=== PATIENT | female | born 1950 | race American Indian/Alaskan Native ===

== ENCOUNTER → 2018-04-07 09:13 | Outpatient (CLI) | payer MEDICARE, OTHER, SELFPAY ==
[2018-04-07 09:44] LABS: Add Manual Diff / Slide Review NO; Basophils Percent Auto 1.4 % (0-2); Eosinophils Percent Auto 1.6 % (2-4); Hematocrit 39.1 % (36-46); Hemoglobin 13.2 g/dL (12.0-16.0); Lymphocytes Percent Auto 37.4 % (25-40); Mean Corpuscular HGB Conc 33.8 % (30-36); Mean Corpuscular Hemoglobin 27.8 PG (26-34); Mean Corpuscular Volume 82.1 fL (80-100); Monocytes Percent Auto 9.2 % (3-14); Neutrophils Absolute Auto 3600 /uL (3000-5900); Neutrophils Percent Auto 50.4 % (50-75); Platelet Count 262 X10^3/uL (150-400); Red Blood Cell Count 4.77 X10^6/uL (4.0-5.2); Red Cell Distribution Width 15.1 % (11.6-14.8); White Blood Cell Count 7.1 X10^3/uL (4.5-11.0)
[2018-04-07 10:05] LABS: Alanine Aminotransferase 68 IU/L (9-52); Albumin 4.6 g/dL (3.5-5.0); Albumin Globulin Ratio 1.4 (1.0-2.8); Alkaline Phosphatase 96 U/L (38-126); Aspartate Aminotransferase 59 IU/L (14-36); Bilirubin Total 0.6 mg/dL (0.2-1.3); Calcium 9.5 mg/dL (8.4-10.2); Estimated Glomerular Filt Rate > 60.0 mL/min (>60); Globulin 3.2 g/dL (1.7-4.1); Glucose 272 mg/dL (80-110); HEMOLYSIS < 15 (0-50); Potassium 4.3 mmol/L (3.4-5.1); Sodium 140 mmol/L (137-145); Total Protein 7.8 g/dL (6.3-8.2)
[2018-04-11 10:22] LABS: Cancer Antigen 27.29 11 U/mL (< 38)
== END ==
PROVIDERS: Family Provider Physician Assistant; PCP Physician Assistant; Visit Provider Nurse Practitioner Gerontology
DX: C50.911 Malignant neoplasm of unspecified site of right female breast (principal); C50.912 Malignant neoplasm of unspecified site of left female breast
CPT/HCPCS: 36415; 80053; 85025; 86300

== ENCOUNTER → 2018-10-06 09:32 | Outpatient (CLI) | payer MEDICARE, OTHER, SELFPAY ==
[2018-10-06 10:04] LABS: Alanine Aminotransferase 61 IU/L (9-52); Albumin 4.7 g/dL (3.5-5.0); Albumin Globulin Ratio 1.5 (1.0-2.8); Alkaline Phosphatase 95 U/L (38-126); Aspartate Aminotransferase 44 IU/L (14-36); Bilirubin Total 0.4 mg/dL (0.2-1.3); Blood Urea Nitrogen 12 mg/dL (7-17); Calcium 9.3 mg/dL (8.4-10.2); Carbon Dioxide 18 mmol/L (22-32); Chloride 104 mmol/L (98-107); Estimated Glomerular Filt Rate > 60.0 mL/min (>60); Globulin 3.2 g/dL (1.7-4.1); Glucose 173 mg/dL (80-110); HEMOLYSIS 16 (0-50); Potassium 4.5 mmol/L (3.4-5.1); Sodium 139 mmol/L (137-145); Total Protein 7.9 g/dL (6.3-8.2)
[2018-10-06 10:08] LABS: Add Manual Diff / Slide Review NO; Basophils Percent Auto 1.4 % (0-2); Eosinophils Percent Auto 1.9 % (2-4); Hematocrit 39.2 % (36-46); Hemoglobin 13.3 g/dL (12.0-16.0); Lymphocytes Percent Auto 33.3 % (25-40); Mean Corpuscular Hemoglobin 28.1 PG (26-34); Mean Corpuscular Volume 82.7 fL (80-100); Monocytes Percent Auto 7.2 % (3-14); Neutrophils Absolute Auto 5300 /uL (3000-5900); Neutrophils Percent Auto 56.2 % (50-75); Platelet Count 282 X10^3/uL (150-400); Red Blood Cell Count 4.74 X10^6/uL (4.0-5.2); Red Cell Distribution Width 14.9 % (11.6-14.8); White Blood Cell Count 9.4 X10^3/uL (4.5-11.0)
[2018-10-07 15:07] LABS: Cancer Antigen 27.29 11 U/mL (< 38)
== END ==
PROVIDERS: Family Provider Physician Assistant; PCP Physician Assistant; Visit Provider Nurse Practitioner Gerontology
DX: C50.911 Malignant neoplasm of unspecified site of right female breast (principal); C50.912 Malignant neoplasm of unspecified site of left female breast; Z17.0 Estrogen receptor positive status [ER+]; Z79.811 Long term (current) use of aromatase inhibitors
CPT/HCPCS: 36415; 80053; 85025; 86300

== ENCOUNTER 2018-11-02 11:50 | Day surgery (SDC) | payer MEDICARE, OTHER, SELFPAY ==
--- NOTE | 2018-11-02 | PATH_ITS ---
[facility] Accession Number: [id number] . 01 Material submitted: . PART A: TRANSVERSE COLON POLYP AT 75M PART B: SIGMOID COLON POLYP BIOPSY AT 20CM . 02 Diagnosis: A. Biopsy, Transverse Colon Polyp at 75 cm: Tubular adenoma involving single biopsy fragment. . B. Biopsy, Sigmoid Colon Polyp at 20 cm: Hyperplastic polyp involving single biopsy fragment. MRV/11/03/2018 . 02 Electronically signed: . Steve Potter MD, Pathologist NPI- [id number] . 01 Gross description: . Received two formalin-filled containers, both labeled with the patient's name: . A. In a container labeled transverse colon polyp at 75 cm, are three 0.2-0.4 cm portions of tissue, entirely submitted in cassette A. B. In a container labeled sigmoid polyp at 20 cm, are three less than 0.1 cm to 0.3 cm portions of tissue, entirely submitted in cassette B. ([id number]) /FRR . 02 Pathologist provided ICD-10: D12.3 . 02 CPT . 744146, [id number] Performed at: 01 [facility] [address] [facility], [place], [place] [id number] MD Rodrigo Galeana MD Phone: [phone] Performed at: 02 [facility] [address] [place], [place] [id number] MD Lana Casanova MD Phone: [phone]
[2018-11-02 12:13] VITALS: BMI 39.4
--- NOTE | 2018-11-02 12:37 | PM.HP.1 ---
History of Present Illness Date Patient Seen: 11/02/18 Time Patient Seen: 12:38 Chief complaint: [id number] Narrative: 68-year-old female who last completed colonoscopy 5 years ago was found have polyps at that time. She returns now for colorectal surveillance. On further history today she denies any recent gastrointestinal symptoms. No nausea, vomiting, abdominal pain, loss of appetite, unexplained weight loss, change in bowel habits, diarrhea, constipation, melena, hematochezia, or bright red blood per rectum. Patient History Medical History Anxiety (Acute) Breast cancer in female (Acute) Depression (Acute) Diabetes (Acute) Hyperlipidemia (Acute) Hypertension (Acute) Hypothyroidism (Acute) Morbid obesity (Acute) Personal history of colonic polyps (Acute) Surgical History History of colonoscopy (Acute) History of mastectomy (Acute) Family & Social History Family History: Reviewed 11/02/18 by Xiang Tena MD Social History: household members spouse Meds Home Medications Medication Instructions Recorded Confirmed Type losartan 50 mg PO QDAY #0 10/10/17 04/11/18 History aspirin [Aspir-81] 81 mg PO DAILY 10/10/18 10/10/18 History atorvastatin 20 mg PO DAILY 10/10/18 10/10/18 History gabapentin [Neurontin] 300 mg PO TID #120 cap 10/10/18 Rx letrozole 2.5 mg PO DAILY #90 tab 10/10/18 Rx levothyroxine 125 mcg PO DAILY 10/10/18 10/10/18 History metformin 500 mg PO BID 10/10/18 10/10/18 History ranitidine HCl [Zantac] 150 mg PO DAILY 10/10/18 10/10/18 History sertraline [Zoloft] 100 mg PO DAILY 10/10/18 10/10/18 History simvastatin 40 mg PO BEDTIME 10/10/18 10/10/18 History Allergies Allergy/AdvReac Type Severity Reaction Status Date / Time hydromorphone [HYDROMORPHONE] AdvReac Unknown ITCHING, Unverified 03/08/18 11:57 TONGUE FELT HEAVY PENICILLIN Allergy Intermediate Uncoded 03/08/18 11:57 Review of Systems Review of Systems All systems reviewed & are unremarkable except as noted in HPI and below Exam Narrative Exam Narrative: Well-nourished well-developed obese female in no acute distress. Alert oriented x3. is at the bedside for my entire visit. Sclera nonicteric Regular rate and rhythm Abdomen obese but soft and nondistended. Nontender. No masses Extremities show no clubbing, cyanosis, or significant edema Objective Labs Labs: No recent radiographic studies for review Assessment & Plan Plan: Assessment/Plan Narrative: 68-year-old female with personal history of colon polyps. Her last colonoscopy was 5 years ago. She requires colorectal surveillance. Colonoscopy is once again recommended. Technical details of the procedure were reviewed. Risks, benefits, alternatives were explained. Risks including but not limited to sedation, aspiration, bleeding, pain, missed lesion, incomplete examination, need for further radiographic studies, colonic perforation, need for major abdominal surgery, and all attendant risks of major surgery were explained at length. All questions were answered to her satisfaction, and she voiced understanding. Consent was placed on the chart. We will proceed as above.
--- NOTE | 2018-11-02 12:41 | PM.PREOP ---
Pre-operative Note Interval Note Pre-op Check: Yes History & Physical Reviewed by Physician, Yes Exam Performed and Yes History & Physical exam performed today by Physician Changes: No H&P completed within 30 days and has changed as indicated here:: Patient seen and examined in the preoperative area today. History and physical examination documented and placed on the chart today. Proceed with colonoscopy as planned. ASA Class (for procedural sedation): II
[2018-11-02] MEDS: SODIUM CHLORIDE 0.9% 1,000 ML 200 ML IV (12:45)
[2018-11-02] MEDS: fentaNYL 250 MCG/5 ML INJ IV (13:16)
[2018-11-02] MEDS: MIDAZOLAM 5 MG/5 ML VIAL IV (13:17)
--- NOTE | 2018-11-02 13:27 | PM.OP.ENDO ---
Operative Date/Time/Diagnoses Date of procedure: 11/02/18 Time of procedure: 13:27 Pre-op diagnosis: Personal history of colon polyps Post-op diagnosis: same Procedure & Clinicians Study performed: 1. Sedation per surgeon 2. Colonoscopy with cold forceps polypectomies Same procedure as scheduled: Yes Indications: 68-year-old female with personal history of colon polyps. Her last colonoscopy was 5 years ago. Colonoscopy is once again recommended for surveillance purposes. Surgeon: Xiang Tena Procedure Notes SCOAP/Timeout: Yes Procedure in detail: After obtaining informed consent, the patient was brought to the GI suite and placed in the left lateral decubitus position on the examination table. After placement of appropriate monitors, the patient was given incremental doses of Versed and Fentanyl until an appropriate level of sedation was achieved. A time out was held per SCOAP protocol. A digital rectal examination was performed and did not reveal any masses or obstructing lesions. The colonoscope was gently passed into the patient's anus and the entire colon navigated to the level of the cecum with minimal difficulty. Once in the cecum, the scope was withdrawn being sure to go before and beyond all mucosal folds and prominences and get an excellent examination. The findings are noted above. At the level of the rectal vault, the scope was retroflexed and the internal anal canal was examined. The scope was straightened and air aspirated from the colon. The instrument was removed from the patient's body and the procedure was concluded. The patient was allowed to awaken from sedation without difficulty and taken to the post-anesthesia care unit in good condition. Scope withdrawal time: 9:56 min Sedation minutes: 37 Findings: internal hemorrhoids (Grade 2) and polyp Specimen(s): other (1. Transverse colon polyp at 75 cm 2. Sigmoid colon polyp at 20 cm) Complications: none Recommendations: Colonscopy in 5 years, High fiber diet and Will call with biopsy results Plan for aftercare: 1. Discharge home Follow up: as needed Disposition: PACU
[2018-11-02 13:40] VITALS: BP 111/67; PULSE 85; RESP 16; TEMP 36.9; O2SAT 95
--- NOTE | 2018-11-02 14:32 | SUR.PHASEII ---
Discharge instructions were verbalized preop with the patient and her , but on discharge written instructions along with preliminary operative note did not go home with the patient.
== END 2018-11-02 13:47 | disposition home or self-care (01) ==
LOC: ENDO 11:51
PROVIDERS: Family Provider Physician Assistant; PCP Physician Assistant; Visit Provider Surgery
PROC: 0DJD8ZZ Inspection of Lower Intestinal Tract, Via Natural or Artificial Opening Endoscopic (ICD-10-PCS; CPT 45378; principal; 2018-11-02 12:45)
DX: Z86.010 Personal history of colon polyps (principal); K64.1 Second degree hemorrhoids; D12.3 Benign neoplasm of transverse colon; D12.5 Benign neoplasm of sigmoid colon
CPT/HCPCS: 45380; 88305; 99152; 99153; J2250; J3010

== ENCOUNTER → 2018-11-17 10:38 | Outpatient (CLI) | payer MEDICARE, OTHER, SELFPAY ==
--- NOTE | 2018-11-17 | DI.US.S_ITS ---
PROCEDURE: US ABDOMEN COMPLETE INDICATIONS: ELEVATED ALT TECHNIQUE: Real-time scanning was performed of the abdominal and retroperitoneal organs, with image documentation. COMPARISON: None. FINDINGS: Liver: Coarse echogenic liver. No focal hepatic lesion.. Gallbladder: Unremarkable her no sonographic Bender's sign Biliary ducts: Intrahepatic bile ducts are non-dilated. Extrahepatic bile duct caliber measures 7-8 mm. Normal is 6-7 mm or less in diameter, or 10 mm or less post-cholecystectomy. Pancreas: Visualized portions of the pancreas are sonographically normal. Spleen: Spleen is normal in size and homogeneous in echotexture. Kidneys: Kidneys are normal in size and echotexture. Right kidney measures 15.1 cm long; left kidney measures 11.6 cm long. No hydronephrosis. 9 mm nonobstructive calculus in the inferior pole the right kidney. No solid masses. Aorta: Visualized aorta is normal in caliber at less than 3 cm. Iliacs: Proximal common iliac arteries are normal in caliber at less than 2.5 cm. IVC: Intrahepatic inferior vena cava is patent. Miscellaneous: No free abdominal fluid. IMPRESSION: Coarse echogenic liver suggesting diffuse hepatocellular disease/fatty infiltration. Please correlate with LFTs. Nonobstructive right renal calculus. Normal appearance of the gallbladder. Dictated by: Ferny Izaguirre M.D. on 11/17/2018 at 13:12 Approved by: Ferny Izaguirre M.D. on 11/17/2018 at 13:14
== END ==
PROVIDERS: Family Provider Physician Assistant; PCP Physician Assistant; Visit Provider Family Medicine
DX: N20.0 Calculus of kidney (principal); R74.0 Nonspecific elevation of levels of transaminase and lactic acid dehydrogenase [LDH]
CPT/HCPCS: 76700

== ENCOUNTER → 2022-04-29 14:01 | Outpatient (CLI) | payer MEDICARE, OTHER, SELFPAY | PROVIDERS: Family Provider Physician Assistant; PCP Family Medicine; Referring Provider Family Medicine; Visit Provider Family Medicine | DX: Z13.820 Encounter for screening for osteoporosis; Z78.0 Asymptomatic menopausal state | CPT/HCPCS: 77080 ==

== ENCOUNTER → 2022-06-28 11:48 | Outpatient (CLI) | payer MEDICARE, OTHER, SELFPAY ==
--- NOTE | 2022-06-28 11:53 | DI.RAD.S_ITS ---
PROCEDURE: XR KNEE RT 1TO2V INDICATIONS: Pain in left knee TECHNIQUE: 1 views of the knee were acquired. COMPARISON: None. FINDINGS: Bones: No fractures or dislocations. No suspicious bony lesions. Moderate lateral medial compartment osteoarthritis. Soft tissues: No joint effusion. No suspicious soft tissue calcifications. IMPRESSION: Moderate osteoarthritis. Dictated by: Neela Burch MD, PhD on 06/28/2022 at 16:51 Approved by: Neela Burch MD, PhD on 06/28/2022 at 16:52
--- NOTE | 2022-06-28 11:53 | DI.RAD.S_ITS ---
PROCEDURE: XR KNEE LT 3V INDICATIONS: Pain in left knee TECHNIQUE: 3 views of the knee were acquired. COMPARISON: None. FINDINGS: Bones: No fractures or dislocations. No suspicious bony lesions. Moderate osteoarthritic degenerative changes noted in all 3 compartments of the left knee. Soft tissues: Large suprapatellar joint effusion. No suspicious soft tissue calcifications. IMPRESSION: Moderate tricompartmental osteoarthritis. Large nonspecific joint effusion. Dictated by: Neela Burch MD, PhD on 06/28/2022 at 16:41 Approved by: Neela Burch MD, PhD on 06/28/2022 at 16:51
== END ==
PROVIDERS: Family Provider Physician Assistant; PCP Family Medicine; Referring Provider Family Medicine; Visit Provider Family Medicine
DX: M25.562 Pain in left knee (principal); M17.12 Unilateral primary osteoarthritis, left knee; M25.462 Effusion, left knee
CPT/HCPCS: 73560; 73562

== ENCOUNTER → 2023-03-22 12:17 | Outpatient (CLI) | payer MEDICARE, OTHER, SELFPAY ==
--- NOTE | 2023-03-22 | DI.ECHO.S_ITS ---
[facility]---------+ [facility] +---------+ : : [address] [place] : : : : [id number] : : : : Phone: [phone]+ Echocardiogram Report + + :Name: LJ WISE Study Date: 03/22/2023 Height: 64 in : :[facility] ReadingLocation: Weight: 225 lb : : Gender: Female BSA: 2.1 m2 : :: 1950 Age: 72 yrs BP: 128/63 mmHg: :Reason For Study: CARDIAC MURMUR : :Ordering Physician: LINDSAY, : :JOSE LUIS Performed By: Stephy Hall : :Referring: JOSE LUIS MONTOYA : + + Interpretation Summary The left ventricle is normal in size. The ejection fraction is estimated to be 65-70%. The right ventricle is normal in size and function. There is mild mitral regurgitation. There is increased LV outflow tract as well as aortic valve velocity with peak aortic valve velocity 2.53 m/s and LV outflow tract velocity about 1.78 m/s likely due to good LV contractility. Morphologically no significant aortic cusps restriction. There is mild to moderate aortic regurgitation. There is mild tricuspid regurgitation. The right ventricular systolic pressure is estimated to be at least 26 mmHg based on an estimated right atrial pressure of 3 mm Hg. Procedure: A two-dimensional transthoracic echocardiogram with color flow and Doppler was performed. The study quality was technically adequate. Comparison is made with the echocardiogram of 02/28/2014. The patient was in sinus rhythm with heart rates between 65-70 bpm during the exam. Left Ventricle: The left ventricle is normal in size. There is mild proximal septal thickening noted. There is no thrombus. The ejection fraction is estimated to be 65-70%. There are no focal wall motion abnormalities. Diastolic parameters suggest a relaxation abnormality of the left ventricle, consistent with probable normal filling pressures. Right Ventricle: The right ventricle is normal in size and function. Atria: The left atrial size is normal. Right atrial size is normal. There is no Doppler evidence for an interatrial shunt. Lipomatous hypertrophy of the interatrial septum is noted. Mitral Valve: The mitral valve leaflets appear mildly thickened, but open well. There is mild mitral annular calcification. There is mild mitral regurgitation. Aortic Valve: The aortic valve is trileaflet. The aortic valve is mildly calcified. There is increased LV outflow tract as well as aortic valve velocity with peak aortic valve velocity 2.53 m/s and LV outflow tract velocity about 1.78 m/s likely due to good LV contractility. Morphologically no significant aortic cusp restriction. There is no hemodynamically significant valvular aortic stenosis. There is mild to moderate aortic regurgitation. Tricuspid Valve: The tricuspid valve is not well visualized, but is grossly normal. Fatty tricuspid annulus. There is mild tricuspid regurgitation. The right ventricular systolic pressure is estimated to be at least 26 mmHg based on an estimated right atrial pressure of 3 mm Hg. Pulmonic Valve: The pulmonic valve is not well seen, but is grossly normal. There is no pulmonic valvular regurgitation. Great Vessels: The aortic root is normal size. The dimensions of the ascending aorta are normal. The IVC is of normal diameter and collapses greater than 50% with a sniff. This suggests a low right atrial pressure of 3 mm Hg. Pericardium/ Pleura There is no pericardial effusion. There is an anterior echo-free space consistent with a fat pad. There is no pleural effusion. MMode/2D Measurements & Calculations LVIDd: 4.8 cm LVOT diam: 2.1 cm LVIDs: 2.8 cm Ao root diam: 3.0 cm FS: 41.4 % asc Aorta Diam: 3.1 cm IVSd: 0.82 cm Ao Arch Diam (Prox Trans): 2.7 cm LVPWd: 0.85 cm LV carias. diameter/BSA (cm/m^2): 2.4 LV sys. diameter/BSA (cm/m^2): 1.4 LA A2 area: 23.2 cm2 RA long axis: 5.1 cm LA A4 area: 21.7 cm2 RA area: 16.8 cm2 LA length (vol): 6.4 cm RA vol: 47.3 ml LA vol: 66.6 ml RA : 23.0 ml/m2 LA vol index: 32.4 ml/m2 IVC diam: 1.7 cm RVD1 (basal): 3.9 cm RVD2 (mid): 3.2 cm TAPSE: 2.3 cm Doppler Measurements & Calculations Ao V2 max: 253.0 cm/sec LVOT Max Ronan: 169.8 cm/sec Ao V2 mean: 174.0 cm/sec LV V1 max P.5 mmHg Ao max P.6 mmHg LV V1 VTI: 37.6 cm Ao mean P.8 mmHg ADE(I,D): 2.3 cm2 Ao V2 VTI: 56.2 cm ADE(V,D): 2.4 cm2 sev ratio: 0.67 ADE indexed to BSA (cm^2/m^2): 1.1 AI P1/2t: 548.1 msec AI dec slope: 233.4 cm/sec2 MV E max ronan: 92.5 cm/sec TR max ronan: 238.0 cm/sec MV A max ronan: 102.5 cm/sec TR max P.7 mmHg MV E/A: 0.90 PA V2 max: 112.8 cm/sec Med Peak E' Ronan: 7.2 cm/sec PA V2 mean: 73.7 cm/sec E/E' med: 12.8 PA mean P.5 mmHg Lat Peak E' Ronan: 6.6 cm/sec PA pr(Accel): 27.6 mmHg E/E' lat: 14.0 E/e' average: 13.4 MV dec time: 0.31 sec SV(LVOT): 131.7 ml Reading Physician:02:46 PM
== END ==
PROVIDERS: Family Provider Physician Assistant; PCP Family Medicine; Referring Provider Family Medicine; Visit Provider Family Medicine
DX: R01.1 Cardiac murmur, unspecified (principal); I08.3 Combined rheumatic disorders of mitral, aortic and tricuspid valves
CPT/HCPCS: 93306

== ENCOUNTER → 2023-07-09 08:28 | Outpatient (CLI) | payer MEDICARE, OTHER, SELFPAY ==
--- NOTE | 2023-07-09 08:31 | DI.MRI.S_ITS ---
PROCEDURE: MR KNEE RT WO CON INDICATIONS: DERANGEMENT OF RIGHT KNEE TECHNIQUE: Noncontrast sagittal PD fast spin echo and T2 fast spin echo with fat saturation, sagittal 3-D FLASH with fat saturation; coronal T1 spin echo and PD fast spin echo with fat saturation, and axial PD fast spin echo with fat saturation through the knee. COMPARISON: [facility], CR, XR KNEE ARTHRITIC SERIES LT, 04/14/2023, 8:36. FINDINGS: Image quality: Excellent. Menisci: The medial meniscus demonstrates normal morphology and internal signal. Complex tearing of the lateral meniscus beginning in the anterior horn with a macerated appearance which becomes a horizontal tear through the body intersecting the under surface her extends to the posterior horn. Cruciate ligaments: The anterior and posterior cruciate ligaments appear intact. Medial structures: The medial collateral ligament appears intact. The posterior oblique ligament, semimembranosus tendon insertions, oblique popliteal ligament, and meniscocapsular junction appear intact. Visualized portions of the pes anserinus tendons appear normal. No abnormal bursal fluid. Lateral structures: There is mild edema signal within the lateral collateral ligament likely sequela of adjacent trauma. The long and short heads of the biceps femoris tendon appear intact. Mild intermediate signal in the popliteus tendon near its insertion likely sequela of adjacent trauma. Iliotibial band appears normal. Anterior structures: The quadriceps and patellar tendons appear intact. Patellar alignment is normal. No femoral trochlear dysplasia or ventral trochlear prominence. Mild edema within the infrapatellar fat pad. Prepatellar tendon edema. Bones and cartilage: Lateral tibial plateau fracture with compression measuring approximately 3.4 cm with corresponding chondral injury. Lateral marginal osteophytes. The cartilage of the medial femorotibial compartment, as well as the patellofemoral compartment, appears normal in thickness. Joint space: Small effusion. No Thibodeaux's cyst. Normal appearing synovial plicae are incidentally noted. IMPRESSION: Lateral tibial plateau fracture, Schatzker type 3 Complex lateral meniscal tears. Inflammatory changes of the lateral collateral ligament and popliteus tendon, likely reactive to underlying trauma. Prepatellar tendon edema, correlate for patellar tendon bursitis. Dictated by: Jeremy Lucia M.D. on 07/10/2023 at 9:31 Approved by: Jeremy Lucia M.D. on 07/10/2023 at 9:41
== END ==
PROVIDERS: Family Provider Physician Assistant; PCP Family Medicine; Referring Provider Family Medicine; Visit Provider Family Medicine
DX: S82.141A Displaced bicondylar fracture of right tibia, initial encounter for closed fracture (principal); S83.271A Complex tear of lateral meniscus, current injury, right knee, initial encounter; M23.91 Unspecified internal derangement of right knee
CPT/HCPCS: 73721

== ENCOUNTER → 2025-06-17 12:22 | Outpatient (CLI) | payer MEDICARE, SELFPAY ==
--- NOTE | 2025-06-17 | DI.US.S_ITS ---
PROCEDURE: US PERIPH VENOUS LOW EXTREM LT INDICATIONS: LEG SWELLING TECHNIQUE: Real-time imaging, as well as color and pulse Doppler interrogation, were performed of the lower extremity deep veins from the inguinal ligament to the popliteal fossa, with documentation of the visualized calf veins. COMPARISON: None. FINDINGS: The common femoral, femoral, popliteal, and the visualized calf veins are normally compressible, and free of intraluminal thrombus. Color and pulse Doppler demonstrate normal phasic intraluminal flow. There is normal augmentation response to distal compression maneuver. IMPRESSION: No findings of lower extremity deep venous thrombosis. Dictated by: Carlton Longoria M.D. on 06/17/2025 at 14:50 Approved by: Carlton Longoria M.D. on 06/17/2025 at 14:50
== END ==
LOC: US 12:24
PROVIDERS: Family Provider Physician Assistant; PCP Family Medicine; Referring Provider Physician Assistant; Visit Provider Physician Assistant
DX: R60.0 Localized edema (principal)
CPT/HCPCS: 93971